=== PATIENT | male | born 1945 | race Hispanic/Latino ===

== ENCOUNTER 2024-07-30 14:00 | Outpatient (RCR) | payer OTHER | END 2024-07-31 | LOC: PT 14:00 | PROVIDERS: ATTEND Physician Assistant | DX: M47.816 Spondylosis without myelopathy or radiculopathy, lumbar region (principal); M43.17 Spondylolisthesis, lumbosacral region; M62.81 Muscle weakness (generalized); M54.50 Low back pain, unspecified ==

== ENCOUNTER 2024-08-03 12:04 | Outpatient (RCR) | payer OTHER | END 2024-08-30 | LOC: PT 12:04 | PROVIDERS: ATTEND Physician Assistant | DX: M47.816 Spondylosis without myelopathy or radiculopathy, lumbar region (principal); M43.17 Spondylolisthesis, lumbosacral region; M54.50 Low back pain, unspecified; M62.81 Muscle weakness (generalized) ==